=== PATIENT | female | born 1980 | race African-American/Black ===

== ENCOUNTER 2016-12-17 00:39 | Emergency (ER) | payer OTHER ==
[~2016-12-17] VITALS: Ht 170.2 cm; Wt 70.5 kg
[~2016-12-17 00:39] MED LIST: IBUP800T25 PO
[2016-12-17 00:46] VITALS: Ht 170.2 cm; Wt 70.5 kg
[2016-12-17] MEDS ORDERED: IBUPROFEN 800 MG TAB PO ONE (01:30)
--- NOTE | 2016-12-17 01:47 | RADRPT ---
PROCEDURE: Noncontrast CT Head. CLINICAL INDICATION: Trauma. TECHNIQUE: Noncontrast CT of the head was obtained. The administered radiation dose was CTDI vol = 45 mGy, DLP = 720 mGy-cm. COMPARISON: No pertinent prior examinations were submitted for comparison. FINDINGS: The ventricles and sulci are within normal limits. There is no acute intracranial hemorrhage or ext ra-axial fluid collection. There is no mass effect. No midline shift is identified. There is no loss of alvarez-white differentiation to suggest acute infarction. The orbits are within normal limits. The paranasal sinuses and mastoid air cells are without fluid. No destructive osseous lesion is identified. IMPRESSION: No acute findings. RPTAT: HIKT .Abilio Colbert MD, MD Date Time Electronically viewed and signed by .Abilio Colbert MD, on 12/17/2016 01:46 .T/
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
[2016-12-17] MEDS ORDERED: IBUP800T25 PO (02:46)
== END 2016-12-17 03:03 | disposition home or self-care (01) ==
LOC: E/R 00:39
DX: S09.90XA Unspecified injury of head, initial encounter (principal); R51 Headache; Y08.89XA Assault by other specified means, initial encounter; Z87.891 Personal history of nicotine dependence
CPT/HCPCS: 70450; Z7502

== ENCOUNTER 2017-09-14 20:36 | Emergency (ER) | END 2017-09-14 22:04 | disposition home or self-care (01) ==

== ENCOUNTER 2017-11-23 20:22 | Emergency (ER) | END 2017-11-24 01:20 | disposition home or self-care (01) ==

== ENCOUNTER 2018-03-18 10:37 | Emergency (ER) | END 2018-03-18 11:26 | disposition home or self-care (01) ==